=== PATIENT | female | born 1965 | race African-American/Black ===

== ENCOUNTER 2018-06-23 07:06 | Emergency (ER) | payer MEDICAID ==
[~2018-06-23] VITALS: Ht 165.1 cm; Wt 73.4 kg
[2018-06-23] MEDS ORDERED: PREDNISONE 20MG TABLET PO ONE (07:45)
[2018-06-23] MEDS ORDERED: KETOROLAC 60MG/2ML VIAL IM ONE (07:45)
[2018-06-23 09:59] VITALS: BP 153/81
== END 2018-06-23 10:06 | disposition home or self-care (01) ==
LOC: ER 07:24
DX: J02.0 Streptococcal pharyngitis (principal)
CPT/HCPCS: 87430; 96372; 99283; J1885; J7512